=== PATIENT | male | born 1960 | race Caucasian/White ===

== ENCOUNTER 2021-05-01 16:13 | Emergency (ER) | payer OTHER ==
[~2021-05-01] VITALS: Ht 172.7 cm; Wt 79.4 kg
[~2021-05-01 16:13] MED LIST: ASPIRIN81 MG PO; BENTYL 20 MG TA20 M1 PO; DOXYCYCLINE 10100 MG PO; ETODOLAC500 MG PO; FLEXERIL PO; LIDODERM 5%1 PATC1 TRANSDERM; LISINOPRIL10 MG PO; LISINOPRIL40 MG PO; NAPROSYN500 MG PO; PERCOCET 5-3251 EACH PO; VICOPROFEN 2001 EACH PO; XANAX 0.5 MG0.5 MG PO
[2021-05-01 16:56] LABS: ABSOLUTE EOSINOPHILS 0.3 thou/uL (0.0-0.7); ABSOLUTE LYMPHOCYTES 1.6 thou/uL (0.8-5.3); ABSOLUTE MONOCYTES 0.5 thou/uL (0.0-1.2); ABSOLUTE NEUTROPHILS 2.6 thou/uL (1.6-8.1); BASOPHILS 0.9 %; EOSINOPHILS 6.3 %; HEMATOCRIT 43.5 % (42.0-52.0); HEMOGLOBIN 14.9 gm/dL (14.0-18.0); LYMPHOCYTES 31.8 %; MCHC 34.2 g/dL (28.0-37.0); MCV 93.6 fL (80.0-100.0); MONOCYTES 10.1 %; MPV 7.8 fl. (7.2-11.1); NUCLEATED RBCS 0 /100WBC; PLATELET COUNT* 189 thou/uL (150-400); POLYS 50.9 %; RBC 4.65 mil/uL (4.50-6.00); RDW-CV 12.7 % (10.5-14.5); WBC 5.1 thou/uL (4.0-11.0)
[2021-05-01 17:04] LABS: CALCIUM 9.1 mg/dL (8.5-10.1); CREATININE 1.2 mg/dL (0.6-1.3); POTASSIUM 4.3 mmol/L (3.5-5.1)
[2021-05-01 17:15] LABS: ALBUMIN 3.8 g/dL (3.4-5.0); TOTAL BILIRUBIN 0.4 mg/dL (<0.1-1.0); TOTAL PROTEIN 7.8 g/dL (6.4-8.2)
[2021-05-01 17:30] VITALS: BP 161/87
--- NOTE | 2021-05-02 16:00 | EKG ---
[place] [address] ELECTROCARDIOGRAM REPORT Name: DORIS EWING Room: [facility]#: [id number] Admission: 05/01/21 Attend Phys: Discharge: 05/01/21 Date of : 60 Date of Service: 05/01/21 1638 Report #: [id number] THIS REPORT FOR: //name// [facility] ED Test Date: 2021-05-01 Test Time: 16:38:19 Pat Name: DORIS EWING Department: Room: Gender: Chef & Owner: : 1960 Requested By: Demario George Order Number: [id number] : Jostin Sue Measurements Intervals [place] Rate: 60 P: -3 KS: 163 QRS: 57 QRSD: 89 T: 36 QT: 397 QTc: 397 Interpretive Statements Sinus rhythm Compared to ECG 10/15/2016 09:29:25 Sinus tachycardia no longer present Electronically Signed On 05-02-2021 16:00:07 PECAN GROWER by Jostin Sue [email or web address] <ELECTRONICALLY SIGNED> By: Jostin Sue MD, [facility] 05/02/21 1600 1638 1638 Jostin Sue MD, [facility] /EPI
== END 2021-05-01 17:33 | disposition home or self-care (01) ==
LOC: M.ERS 16:13
PROVIDERS: Family Medicine
DX: I10 Essential (primary) hypertension (principal); Z90.49 Acquired absence of other specified parts of digestive tract; Z79.899 Other long term (current) drug therapy; Z88.0 Allergy status to penicillin